=== PATIENT | male | born 1940 | race Hispanic/Latino ===

== ENCOUNTER 2016-11-09 19:59 | Inpatient (IN) | payer BC, MEDICARE ==
[2016-11-09] MEDS ORDERED: Lidocaine/Prilocaine CREAM 5GM TP ONE ×2 (21:13→21:33)
[2016-11-09 21:14] LABS: BASO # 0.1 K/uL (0.0-0.2); BASO % 0.5 % (0.0-2.0); EOS # 0.1 K/uL (0.0-0.7); EOS % 0.5 % (0.0-4.0); HEMATOCRIT 38.2 % (35.0-51.0); LYMPH # 1.4 K/uL (1.0-4.3); LYMPH % 11.6 % (20.0-40.0); MEAN CELL VOLUME 98.4 fl (80.0-94.0); MEAN CORPUSCULAR HEMOGLOBIN 32.7 pg (27.0-31.0); MEAN CORPUSCULAR HGB CONC 33.3 g/dL (33.0-37.0); MONO # 1.4 K/uL (0.0-0.8); MONO % 12.1 % (0.0-10.0); NEUT # 8.9 K/uL (1.8-7.0); NEUT % 75.3 % (50.0-75.0); NRBC % 0.1 % (0.0-0.0); WHITE BLOOD COUNT 11.9 K/uL (4.8-10.8)
[2016-11-09 21:29] LABS: ALB/GLOB RATIO 1.3 (1.0-2.1); BILIRUBIN,TOTAL 0.7 mg/dl (0.2-1.3); CALCIUM 10.1 mg/dL (8.4-10.2); POTASSIUM 4.6 MMOL/L (3.6-5.0); TOTAL PROTEIN 7.9 G/DL (6.3-8.2)
[2016-11-09 21:30] LABS: RBC URINE < 1 /hpf (0-3); URINE BILIRUBIN NEGATIVE (NEGATIVE); URINE BLOOD NEGATIVE (NEGATIVE); URINE COLOR YELLOW (YELLOW); URINE GLUCOSE (UA) 50 mg/dL (Normal); URINE KETONE NEGATIVE (NEGATIVE); URINE LEUKOCYTE ESTERASE NEG Leu/uL (Negative); URINE PROTEIN 30 mg/dL (NEGATIVE); URINE UROBILINOGEN 0.2-1.0 mg/dL (0.2-1.0); WBC URINE 1 /hpf (0-5)
[2016-11-09 21:32] LABS: ABG ALLEN TEST YES; ARTERIAL BLOOD GAS HCO3 22.7 mmol/L (21-28); ARTERIAL BLOOD GAS PH 7.38 (7.35-7.45); ARTERIAL BLOOD GAS PO2 81 mm/Hg (80-100)
[2016-11-09 21:42] LABS: TROPONIN I 0.013 ng/mL (0.00-0.120)
--- NOTE | 2016-11-09 22:07 | ED PDOC ---
Hyperglycemia/Hypoglycemia Time Seen by Provider: 11/09/16 20:09 Chief Complaint (Nursing): Cough, Cold, Congestion Chief Complaint (Provider): Hypoglycemia, weakness, slurred speech History Per: Patient History/Exam Limitations: no limitations Onset/Duration Of Symptoms: Mins Current Symptoms Are (Timing): Still Present Severity: Moderate Current Diabetic Medications: Insulin, Oral Medication Causative (Exacerbating) Factor(s): Ate Less Than Normal Associated Infectious Symptoms: denies: Nausea, Vomiting, Diarrhea : The patient does not have any of the infectious symptoms listed except for those marked. Treatment Prior To Provider Evaluation: Accucheck, Oral Fluids/Paste Given ( orange juice given) Response To Treatment: Good Response Additional History Per: Patient, Family Additional Complaint(s): The pt is a 76yo male with PMHx of HTN, DM, CAD, CABG, presents to the ED for evaluation of Hypoglycemia. Pt was admitted last week for 3 days at [facility] for chest pain. Per family, the pt had a cardiac cath done which was found to be normal. Pt was discharged 2 days ago and reports his blood sugar has been labile. Pt's pMD Dr. Esteban has been changing his oral hypoglycemic and insulin regimen. Pt's reports he became diaphoretic today and presented with slurred speech. She reports calling 911 and EMS responded, and accucheck on field showed blood sugar level of 58. Pt was given orange juice with improvements. On arrival to triage, pt had accucheck of 64. Pt reports he has had similar episodes in the past. Denies any associated chest pain, cough, fever, nausea, vomiting and diarrhea. Family additionally reports pt has poor food intake today due to lack of appetite. Of note, pt was hypothermic upon arrival and in room, Hall hugger blanket was placed. Currently , pt offers no additional medical complaints. Past Medical History Reviewed: Historical Data, Nursing Documentation, Vital Signs Vital Signs: Last Vital Signs Temp 97.5 F L 11/09/16 21:50 Pulse 73 11/09/16 21:50 Resp 20 11/09/16 21:50 BP 130/60 11/09/16 20:20 Pulse Ox 100 11/09/16 21:50 - Medical History PMH: CAD, HTN, Hypercholesterolemia - Surgical History Surgical History: CABG - Family History Family History: States: Hypertension - Immunization History Hx Tetanus Toxoid Vaccination: No Hx Influenza Vaccination: No Hx Pneumococcal Vaccination: Yes - Home Medications Home Medications: Ambulatory Orders Medication Instructions Recorded oxyCODONE/Acetaminophen [Percocet 1 tab PO Q6H PRN #15 tab 12/11/14 5/325 mg Tab] - Allergies Allergies/Adverse Reactions: Allergies Allergy/AdvReac Type Severity Reaction Status Date / Time No Known Allergies Allergy Verified 12/11/14 18:07 Review of Systems ROS Statement: Except As Marked, All Systems Reviewed And Found Negative Constitutional: Positive for: Other (Diaphoretic). Negative for: Fever Gastrointestinal: Negative for: Nausea, Vomiting, Diarrhea Neurological: Positive for: Weakness, Other (Slurred speech) Physical Exam - Reviewed Nursing Documentation Reviewed: Yes Vital Signs Reviewed: Yes - Physical Exam Appears: Positive for: Well, Non-toxic, Uncomfortable Head Exam: Positive for: ATRAUMATIC, NORMAL INSPECTION, NORMOCEPHALIC Skin: Positive for: Diaphoresis Eye Exam: Positive for: Normal appearance Neck: Positive for: Normal Cardiovascular/Chest: Positive for: Regular Rate, Rhythm Respiratory: Positive for: Normal Breath Sounds. Negative for: Respiratory Distress Neurologic/Psych: Positive for: Alert, Oriented, Mood/Affect (slurred speech), Other (weakness) - Laboratory Results Result Diagrams: 11/10/16 07:30 11/09/16 21:00 - ECG O2 Sat by Pulse Oximetry: 100 (RA) Pulse Ox Interpretation: Normal - Critical Care Total Time (In Min): 30 Documented Critical Care: Time excludes all time spent performint seperately billable procedures Medical Decision Making Medical Decision Making: Time: 2039 Impression: 76yo male s/p hypoglycemic episode in setting of known DM. Metabolic hypothermia Plan: * Labs * EKG * Serial Accucheck * Hall Hugger [place] * Reassess Time: 2099 Labs reviewed with no significant abnormalities. Elevated BUN and creatinine levels. Pt has remained euglycemic in ED. Hall hugger blanket placed due to hypothermia with subsequent euthermia. Pt placed on observation status and case discussed with Dr. Keys, resident operations chief who is admitting for Dr. Parmar. Scribe Attestation: Documented by Holly Albrecht acting as a scribe for James Adams MD. Provider Attestation: All medical record entries made by the Scribe were at my direction and personally dictated by me. I have reviewed the chart and agree that the record accurately reflects my personal performance of the history, physical exam, medical decision making, and the department course for this patient. I have also personally directed, reviewed, and agree with the discharge instructions and disposition. Disposition - Clinical Impression Clinical Impression: Hypoglycemia, Hypothermia - Patient ED Disposition Is Patient to be Admitted: Yes Discussed With : Kenneth Keys - Disposition Disposition Time: 22:03 Condition: FAIR
--- NOTE | 2016-11-09 22:20 | RAD ---
HISTORY: admit COMPARISON: Chest x-ray performed 12/11/14 TECHNIQUE: Chest, one view. FINDINGS: LUNGS: Right basilar atelectasis or infiltrate. Please note that chest x-ray has limited sensitivity for the detection of pulmonary masses. PLEURA: No significant pleural effusion identified. No definite pneumothorax . CARDIOVASCULAR: Median sternotomy wires, several of which appear discontinuous. Cardiomegaly. Ectatic aorta containing atherosclerotic calcifications. OSSEOUS STRUCTURES: Degenerative changes of spine and shoulders. Chronic appearing right rib fracture deformities. Correlate clinically. VISUALIZED UPPER ABDOMEN: Elevation/eventration of the right hemidiaphragm. OTHER FINDINGS: None. IMPRESSION: Right basilar atelectasis or infiltrate. Chronic appearing right rib fracture deformities. Correlate clinically. Additional findings as above.
[2016-11-09 22:30] LABS: PARTIAL THROMBOPLASTIN TIME 27.9 SECONDS (23.3-32.5)
[2016-11-09] MEDS ORDERED: Glucagon Recombinant 1 mg Inj IM PRN (23:25)
[2016-11-09] MEDS ORDERED: Dextrose 50% SYRINGE Inj (50 ml) IV PRN (23:25)
--- NOTE | 2016-11-09 23:33 | CP.PCM.HP ---
<Kenneth Keys - Last Filed: 11/10/16 09:03> History of Present Illness - History of Present Illness History of Present Illness: CC/HPI: 76 y.o. male with history of HTN, DM, coronary heart disease s/p CABG ( Cardiac Cath on Friday at [facility] -Negative and discharged with no further intervention) presents to [facility] via ambulance after his noted patient suddenly became diaphoretic, slurring his speech, and complaining of generalized weakness. EMS arrived at the scene and found patient's accuchek to be 58. Prior to arrival Pt. was given [place] juice with peanut butter and crackers. Accucheck in the E.D. was recorded to be 64. Pt. reports that he has been talking Novolog 40 units with each meal. Pt. does report of only having soup for lunch with the 40 units of Novolog. Pt. reports had stopped taking Metformin because he was told by "one" of his doctors that his kidney are not working right. ROS: On ROS, pt. denies any headache, chest pain, shortness of breath, weakness , nausea, vomiting, fever, chills, dirrhea, trauma, falls, injury, or dysuria. 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 Penaloza Pharmacy: [facility] E.D. Course * Labs * EKG * Serial Accucheck * Isabel Crespo [place] Present on Admission - Present on Admission Any Indicators Present on Admission: Yes History of DVT/PE: No History of Uncontrolled Diabetes: Yes Urinary Catheter: No Decubitus Ulcer Present: No Review of Systems - Review of Systems Review of Systems: See HPI Past Patient History - Past Social History Smoking Status: Never Smoked - CARDIAC Hx Hypercholesterolemia: Yes Hx Hypertension: Yes - NEUROLOGICAL Other/Comment: left leg neuropathy - ENDOCRINE/METABOLIC Hx Diabetes Mellitus Type 2: Yes - PSYCHIATRIC Hx Substance Use: No - SURGICAL HISTORY Hx Coronary Artery Bypass Graft: Yes Meds Allergies/Adverse Reactions: Allergies Allergy/AdvReac Type Severity Reaction Status Date / Time No Known Allergies Allergy Verified 12/11/14 18:07 Physical Exam - Constitutional Appears: Non-toxic, No Acute Distress Additional comments: +Obese - Eye Exam Eye Exam: EOMI, Normal appearance, PERRL - ENT Exam ENT Exam: Mucous Membranes Moist - Neck Exam Neck exam: Positive for: Full Rom - Respiratory Exam Respiratory Exam: NORMAL BREATHING PATTERN Additional comments: Scattered bi-basilar rhonchi appreciated - Cardiovascular Exam Cardiovascular Exam: REGULAR RHYTHM. absent: JVD - GI/Abdominal Exam GI & Abdominal Exam: Soft. absent: Tenderness - Extremities Exam Extremities exam: Positive for: normal capillary refill, pedal edema (+2 below the level of the knees bilat). Negative for: calf tenderness Additional comments: Strength +5/5 upper extremities Strength +5/5 lower extremities - Neurological Exam Neurological exam: Alert, CN II-XII Intact, Oriented x3 - Skin Skin Exam: Dry, Normal Color, Warm Results - Vital Signs Recent Vital Signs: Last Vital Signs Temp 97.5 F L 11/09/16 21:50 Pulse 73 11/09/16 21:50 Resp 20 11/09/16 21:50 BP 130/60 11/09/16 20:20 Pulse Ox 100 11/09/16 22:07 - Labs Result Diagrams: 11/09/16 21:00 11/09/16 21:00 Assessment & Plan - Assessment and Plan (Free Text) Assessment: 76 y.o. male with HTN, DM, CAD, and a recent cardiac cath at [facility] which was normal as per pt. and family admitted for hypoglycemia and hypothermia Hypoglycemia due to Diabetes Medications- 67 on admission to E.R. Pt. and family unsure as to the exact regimen of medications PMD has prescribed 1- Hold Home Medications for Diabetes 2- Accuchecks Q4 3- Low dose sliding scale insulin for now 4- Diabetic Diet 5- Will consider starting patient on basal insulin and short acting insulin with meals in the a.m. Hypothermia- 92.8 on admission 1- TOM hugger applied 2- Continue to monitor temperature 3- Temperature is 98.2 currently SIRS Criteria - Temperature of 92.8 and WBC of 11.9 1- Blood cultures ordered 2- UA only significant for proteinuria & glucosuria 3- CXR inconclusive showing RT. basilar atelectasis or infiltrates 4- Will consider starting antibiotics in the a.m. if pt. remains hypo or hyperthermic or elevation in WBC 5- BCx pending 6- Procalcitonin level pending 7- Repeat CBC from this morning Chronic renal insuffeciency 1- Most likely due to uncontrolled Type II DM 2- Control underlying Diabetes HTN 1- continue home medication Ramipril 20mg po daily Hyperlipidemia 1- continue Lipitor 20 mg po daily (At home on Zocor) DVT prophylaxis 1- Lovenox 40 mg sc <Matilda Hardin - Last Filed: 11/10/16 09:11> Results - Vital Signs Recent Vital Signs: Last Vital Signs Temp 99 F 11/10/16 07:53 Pulse 76 11/10/16 07:53 Resp 18 11/10/16 07:53 BP 152/77 H 11/10/16 07:53 Pulse Ox 93 L 11/10/16 07:53 - Labs Result Diagrams: 11/09/16 21:00 11/09/16 21:00 Assessment & Plan - Assessment and Plan (Free Text) Assessment: ATTENDING NOTE ATTESTATION PATIENT SEEN AND EXAMINED. CASE DISCUSSED WITH RESIDENT. AGREE WITH PLAN.
[2016-11-10] MEDS: Insulin Regular 100 units/ml SC SCH ×6 (01:50→22:25)
[2016-11-10 08:57] LABS: HEMATOCRIT 33.8 % (35.0-51.0); MEAN CELL VOLUME 98.9 fl (80.0-94.0); MEAN CORPUSCULAR HEMOGLOBIN 33.1 pg (27.0-31.0); MEAN CORPUSCULAR HGB CONC 33.5 g/dL (33.0-37.0); RED CELL DISTRIBUTION WIDTH 12.5 % (11.5-14.5); WHITE BLOOD COUNT 12.5 K/uL (4.8-10.8)
[2016-11-10] MEDS: Enoxaparin 40 mg Syringe SC SCH (09:13)
[2016-11-10] MEDS: Sodium Chloride 0.9% 1,000 ML IV SCH (11:10)
--- NOTE | 2016-11-10 11:49 | CP.PCM.PN ---
<Vivek Alves - Last Filed: 11/10/16 11:53> Subjective - Date & Time of Evaluation Date of Evaluation: 11/10/16 Time of Evaluation: 09:00 - Subjective Subjective: 76 y/o M admitted for hypoglicemia seen at bedside comfortable in bed, not acute distress. Denies dizziness, CP, SOB, palpitations, diaphoresis, vision changes or weakness. Patient is tolerating PO. Patient states he was using insulin at home as prescribed. Objective - Vital Signs/Intake and Output Vital Signs (last 24 hours): Temp Pulse Resp BP Pulse Ox 99 F 76 18 152/77 H 93 L 11/10/16 07:53 11/10/16 07:53 11/10/16 07:53 11/10/16 09:12 11/10/16 07:53 - Medications Medications: Current Medications Atorvastatin Calcium (Lipitor) 20 mg PO DAILY [facility] Last Admin: 11/10/16 11:09 Dose: 20 mg Dextrose (Dextrose 50% Inj) 0 ml IV STAT PRN; Protocol PRN Reason: Hyglycemia Protocol Dextrose (Glutose 15) 0 gm PO ONCE PRN; Protocol PRN Reason: Hypoglycemia Protocol Enoxaparin Sodium (Lovenox) 40 mg SC DAILY [facility] PRN Reason: Protocol Last Admin: 11/10/16 09:13 Dose: 40 mg Glucagon (Glucagen Diagnostic Kit) 0 mg IM STAT PRN; Protocol PRN Reason: Hypoglycemia Protocol Sodium Chloride (Sodium Chloride 0.9%) 1,000 mls @ 125 mls/hr IV .Q8H [facility] Stop: 11/11/16 10:01 Last Admin: 11/10/16 11:10 Dose: 125 mls/hr Insulin Human Regular (Humulin R) 0 units SC ACHS [facility] PRN Reason: Protocol Ramipril (Altace) 20 mg PO DAILY [facility] Last Admin: 11/10/16 09:12 Dose: 20 mg - Labs Labs: PT 10.9 SECONDS (9.6-11.2) 11/09/16 21:00 INR 1.05 (0.92-1.08) 11/09/16 21:00 APTT 27.9 SECONDS (23.3-32.5) 11/09/16 21:00 - Constitutional Appears: Non-toxic, No Acute Distress - Eye Exam Eye Exam: PERRL - ENT Exam ENT Exam: Mucous Membranes Moist - Respiratory Exam Respiratory Exam: Clear to Ausculation Bilateral, NORMAL BREATHING PATTERN. absent: Rales - Cardiovascular Exam Cardiovascular Exam: REGULAR RHYTHM, +S1, +S2. absent: Gallop - GI/Abdominal Exam GI & Abdominal Exam: Soft, Normal Bowel Sounds. absent: Tenderness - Extremities Exam Extremities Exam: Normal Capillary Refill, Pedal Edema (B/L pitting pedal edema. ) - Neurological Exam Neurological Exam: Alert, Awake, Oriented x3 - Psychiatric Exam Psychiatric exam: Normal Affect, Normal Mood - Skin Skin Exam: Normal Color, Warm Assessment and Plan - Assessment and Plan (Free Text) Assessment: 76 y.o. male with HTN, DM, CAD, and a recent cardiac cath at [facility] which was normal as per pt. and family admitted for hypoglycemia and hypothermia Hypoglycemia on DM Hold Home Medications for Diabetes Accuchecks ACHS medium dose SSI Diabetic Diet Will consider endocrinology consult tomorrow for DM management Hypothermia 92.8 on admission Resolved SIRS on admission Hypothermia resolved. Does not meet criteria for SIRS at this time WBC still elevated 12.5 Blood cultures ordered UA only significant for proteinuria & glucosuria CXR inconclusive showing RT. basilar atelectasis or infiltrates Procalcitonin level pending Chronic renal insufficiency Most likely due to uncontrolled Type II DM Control underlying Diabetes HTN continue home medication Ramipril 20mg po daily Hx of Hyperlipidemia continue Lipitor 20 mg po daily (At home on Zocor) DVT prophylaxis Lovenox 40 mg sc <Matilda Hardin - Last Filed: 11/11/16 10:59> Subjective - Subjective Subjective: ATTENDING NOTE/ATTESTATION PATIENT SEEN AND EXAMINED. CASE DISCUSSED WITH RESIDENT. AGREE WITH PLAN. Objective - Vital Signs/Intake and Output Vital Signs (last 24 hours): Temp Pulse Resp BP Pulse Ox 98.5 F 78 18 180/91 H 95 11/11/16 09:00 11/11/16 09:00 11/11/16 09:00 11/11/16 09:44 11/11/16 09:00 Intake and Output: 11/11/16 11/11/16 06:59 18:59 Intake Total 1100 Balance 1100 - Medications Medications: Current Medications Atorvastatin Calcium (Lipitor) 20 mg PO DAILY [facility] Last Admin: 11/11/16 09:43 Dose: 20 mg Dextrose (Dextrose 50% Inj) 0 ml IV STAT PRN; Protocol PRN Reason: Hyglycemia Protocol Dextrose (Glutose 15) 0 gm PO ONCE PRN; Protocol PRN Reason: Hypoglycemia Protocol Enoxaparin Sodium (Lovenox) 40 mg SC DAILY [facility] PRN Reason: Protocol Last Admin: 11/11/16 09:43 Dose: 40 mg Glucagon (Glucagen Diagnostic Kit) 0 mg IM STAT PRN; Protocol PRN Reason: Hypoglycemia Protocol Insulin Human Regular (Humulin R) 0 units SC ACHS [facility] PRN Reason: Protocol Last Admin: 11/11/16 06:59 Dose: 4 u Ramipril (Altace) 20 mg PO DAILY [facility] Last Admin: 11/11/16 09:44 Dose: 20 mg - Labs Labs: 11/11/16 05:20 11/11/16 05:20 PT 10.9 SECONDS (9.6-11.2) 11/09/16 21:00 INR 1.05 (0.92-1.08) 11/09/16 21:00 APTT 27.9 SECONDS (23.3-32.5) 11/09/16 21:00
[2016-11-10] MEDS ORDERED: Insulin Regular 100 units/ml SC ONE (14:30)
[2016-11-11] MEDS: Sodium Chloride 0.9% 1,000 ML IV SCH ×2 (00:17→02:15)
[2016-11-11 05:14] VITALS: RESP 18
[2016-11-11 06:31] LABS: HEMATOCRIT 35.7 % (35.0-51.0); MEAN CELL VOLUME 97.5 fl (80.0-94.0); MEAN CORPUSCULAR HEMOGLOBIN 32.9 pg (27.0-31.0); MEAN CORPUSCULAR HGB CONC 33.8 g/dL (33.0-37.0); RED CELL DISTRIBUTION WIDTH 12.6 % (11.5-14.5); WHITE BLOOD COUNT 9.5 K/uL (4.8-10.8)
[2016-11-11 06:37] LABS: ALB/GLOB RATIO 1.4 (1.0-2.1); ALKALINE PHOSPHATASE 53 U/L (38-126); ALT/SGPT 39 U/L (21-72); AST/SGOT 34 U/L (17-59); BILIRUBIN,TOTAL 0.8 mg/dl (0.2-1.3); BLOOD UREA NITROGEN 32 mg/dl (9-20); CALCIUM 9.5 mg/dL (8.4-10.2); CARBON DIOXIDE 24 mmol/L (22-30); CHLORIDE 104 mmol/L (98-107); GFR AFRICAN-AMERICAN > 60; GLUCOSE,RANDOM 249 mg/dL (75-110); POTASSIUM 4.7 MMOL/L (3.6-5.0); SODIUM 139 mmol/l (132-148); TOTAL PROTEIN 7.3 G/DL (6.3-8.2)
[2016-11-11] MEDS: Insulin Regular 100 units/ml SC SCH ×2 (06:59→11:54)
[2016-11-11] MEDS: Enoxaparin 40 mg Syringe SC SCH (09:43)
--- NOTE | 2016-11-11 10:35 | CP.PCM.DIS ---
<Arti Jones - Last Filed: 11/11/16 17:21> Provider - Provider Date of Admission: 11/10/16 10:10 Attending physician: Yousuf Esteban MD Time Spent in preparation of Discharge (in minutes): 30 Diagnosis - Discharge Diagnosis (1) Uncontrolled diabetes mellitus Status: Acute Priority: High Comment: Decreased Novolog insulin dose for now. F/U with supply person/ diabetic specialist at [facility] on November and f/u recommendations. C/W Home care nurse. (2) Hypertension Status: Chronic Priority: Medium Comment: Asymptomatic. F/U with PMD, Dr. parmar as outpatient in 1 week or as needed. (3) CAD (coronary artery disease) Status: Chronic Priority: Medium Comment: Asymptomatic. F/U as outpatient with PMD. Hospital Course - Lab Results Lab Results: Most Recent Lab Values WBC 9.5 K/uL (4.8-10.8) 11/11/16 05:20 RBC 3.66 Mil/uL (4.40-5.90) L 11/11/16 05:20 Hgb 12.1 g/dL (12.0-18.0) 11/11/16 05:20 Hct 35.7 % (35.0-51.0) 11/11/16 05:20 MCV 97.5 fl (80.0-94.0) H 11/11/16 05:20 MCH 32.9 pg (27.0-31.0) H 11/11/16 05:20 MCHC 33.8 g/dL (33.0-37.0) 11/11/16 05:20 RDW 12.6 % (11.5-14.5) 11/11/16 05:20 Plt Count 214 K/uL (130-400) 11/11/16 05:20 MPV 10.0 fl (7.2-11.7) 11/09/16 21:00 Neut % (Auto) 75.3 % (50.0-75.0) H 11/09/16 21:00 Lymph % (Auto) 11.6 % (20.0-40.0) L 11/09/16 21:00 [place] % (Auto) 12.1 % (0.0-10.0) H 11/09/16 21:00 Eos % (Auto) 0.5 % (0.0-4.0) 11/09/16 21:00 Baso % (Auto) 0.5 % (0.0-2.0) 11/09/16 21:00 Neut # 8.9 K/uL (1.8-7.0) H 11/09/16 21:00 Lymph # 1.4 K/uL (1.0-4.3) 11/09/16 21:00 [place] # 1.4 K/uL (0.0-0.8) H 11/09/16 21:00 Eos # 0.1 K/uL (0.0-0.7) 11/09/16 21:00 Baso # 0.1 K/uL (0.0-0.2) 11/09/16 21:00 PT 10.9 SECONDS (9.6-11.2) 11/09/16 21:00 INR 1.05 (0.92-1.08) 11/09/16 21:00 APTT 27.9 SECONDS (23.3-32.5) 11/09/16 21:00 pCO2 37 mm/Hg (35-45) 11/09/16 21:28 pO2 81 mm/Hg (80-100) 11/09/16 21: HCO3 22.7 mmol/L (21-28) 11/09/16 21:28 ABG pH 7.38 (7.35-7.45) 11/09/16 21: ABG Total CO2 23.0 mmol/L (22-28) 11/09/16 21:28 ABG O2 Saturation 98.9 % (95-98) H 11/09/16 21:28 ABG Base Excess -2.8 mmol/L (-2.0-3.0) L 11/09/16 21: Enmanuel Test Yes 11/09/16: ABG Potassium 4.7 mmol/L (3.6-5.2) 11/09/16 21: A-a O2 Difference 22.0 mm/Hg 11/09/16 21: Sodium 134.0 mmol/L (132-148) 11/09/16 21: Chloride 106.0 mmol/L (98-107) 11/09/16 21:28 Glucose 175 mg/dL (75-110) H 11/09/16 21:28 Lactate 1.1 mmol/L (0.7-2.1) 11/09/16 21:28 FiO2 21.0 % 11/09/16 21:28 Sodium 139 mmol/l (132-148) 11/11/16 05:20 Potassium 4.7 MMOL/L (3.6-5.0) 11/11/16 05:20 Chloride 104 mmol/L (98-107) 11/11/16 05:20 Carbon Dioxide 24 mmol/L (22-30) 11/11/16 05:20 Anion Gap 16 (10-20) 11/11/16 05:20 BUN 32 mg/dl (9-20) H 11/11/16 05:20 Creatinine 1.2 mg/dL (0.8-1.5) 11/11/16 05:20 Est GFR ( Amer) > 60 11/11/16 05:20 Est GFR (Non-Af Amer) 59 11/11/16 05:20 Random Glucose 249 mg/dL (75-110) H 11/11/16 05:20 Calcium 9.5 mg/dL (8.4-10.2) 11/11/16 05:20 Total Bilirubin 0.8 mg/dl (0.2-1.3) 11/11/16 05:20 AST 34 U/L (17-59) 11/11/16 05:20 ALT 39 U/L (21-72) 11/11/16 05:20 Alkaline Phosphatase 53 U/L (38-126) 11/11/16 05:20 Troponin I 0.0130 ng/mL (0.00-0.120) 11/09/16 21:00 Total Protein 7.3 G/DL (6.3-8.2) 11/11/16 05:20 Albumin 4.2 g/dL (3.5-5.0) 11/11/16 05:20 Globulin 3.1 gm/dL (2.2-3.9) 11/11/16 05:20 Albumin/Globulin Ratio 1.4 (1.0-2.1) 11/11/16 05:20 Procalcitonin 0.06 NG/ML (0.19-0.49) L 11/10/16 01:16 Arterial Blood Potassium 4.7 mmol/L (3.6-5.2) 11/09/16 21:28 Urine Color Yellow (YELLOW) 11/09/16 21:05 Urine Clarity Clear (Clear) 11/09/16 21:05 Urine pH 5.0 (5.0-8.0) 11/09/16 21:05 Ur Specific [place] 1.018 (1.003-1.030) 11/09/16 21:05 Urine Protein 30 mg/dL (NEGATIVE) 11/09/16 21:05 Urine Glucose (UA) 50 mg/dL (Normal) 11/09/16 21:05 Urine Ketones Negative mg/dL (NEGATIVE) 11/09/16 21:05 Urine Blood Negative (NEGATIVE) 11/09/16 21: Urine Nitrate Negative (NEGATIVE) 11/09/16 21:05 Urine Bilirubin Negative (NEGATIVE) 11/09/16 21:05 Urine Urobilinogen 0.2-1.0 mg/dL (0.2-1.0) 11/09/16 21:05 Ur Leukocyte Esterase Neg Carrington/uL (Negative) 11/09/16 21:05 Urine RBC (Auto) < 1 /hpf (0-3) 11/09/16 21:05 Urine Microscopic WBC 1 /hpf (0-5) 11/09/16 21:05 Ur Squamous Epith Cells < 1 /hpf (0-5) 11/09/16 21:05 Hyaline Casts 0-2 /hpf (0-2) 11/09/16 21:05 - Hospital Course Hospital Course: 76 y.o. male with history of HTN, DM, coronary heart disease s/p CABG (Cardiac Cath on Friday at [facility] -Negative and discharged with no further intervention) presented to [facility] via ambulance after his noted he was having a hypoglycemic event.At ED patient was found to be hypothermic and with mild leukocytosis and was admitted for acute changes in mental status with slurring speech and generalized weakness. During admission patient was afebrile , leukocytosis resolved without antibiotics, and patient was tolerating PO. Novolog insulin dose was decreased from 40 units to 20 units, and patient/ family were instructed on Insulin/diabetic management at home, continue with Home care nurse, and f/u with Electrical Timing Device Calibrator/community service specialist at [facility]. Patient reports that he was recent evaluated for a home health nurse for insulin/diabetic management due to macular degeneration. - Date & Time of H&P Date of H&P: 11/09/16 Time of H&P: 23:35 Discharge Exam - Head Exam Head Exam: ATRAUMATIC, NORMAL INSPECTION, NORMOCEPHALIC - Additional Findings Additional findings: Constitutional Appears: Non-toxic, No Acute Distress - Eye Exam Eye Exam: PERRL - ENT Exam ENT Exam: Mucous Membranes Moist - Respiratory Exam Respiratory Exam: Clear to Ausculation Bilateral, NORMAL BREATHING PATTERN. absent: Rales - Cardiovascular Exam Cardiovascular Exam: REGULAR RHYTHM, +S1, +S2. absent: Gallop - GI/Abdominal Exam GI & Abdominal Exam: Soft, Normal Bowel Sounds. absent: Tenderness - Extremities Exam Extremities Exam: Normal Capillary Refill, Pedal Edema (B/L pitting pedal edema. ) - Neurological Exam Neurological Exam: Alert, Awake, Oriented x3 - Psychiatric Exam Psychiatric exam: Normal Affect, Normal Mood - Skin Skin Exam: Normal Color, Warm Discharge Plan - Discharge Medications Prescriptions: Aspirin 81 mg PO DAILY #1 tab.chew Insulin Aspart [Novolog] 20 unit SC AC #1 ml Ramipril [Altace] 20 mg PO DAILY #30 capsule Simvastatin 20 mg PO DAILY #30 tablet - Follow Up Plan Condition: GOOD Disposition: HOME/ ROUTINE Instructions: Diabetic Hypoglycemia (DC), Acute Hypothermia (DC) Additional Instructions: -F/U with Diabetic doctor/supply person at [facility] to continue diabetic management. -Decreased Novolog insulin from 40 units to 20 units, and perform accu-check three times a day before insulin administration. -F/U with Dr. Parmar in 1 week or as needed. -Continue with Home care nursing for Diabetic management -ER precautions given. Discontinued Metformin per patient's Electrical Timing Device Calibrator, we recommend f/u supply person recommendation Referrals: Enrique Parmar MD [Staff Provider] - <Enrique Parmar - Last Filed: 11/12/16 06:48> Provider - Provider Date of Admission: 11/10/16 10:10 Attending physician: Yousuf Esteban MD Hospital Course - Lab Results Lab Results: Most Recent Lab Values WBC 9.5 K/uL (4.8-10.8) 11/11/16 05:20 RBC 3.66 Mil/uL (4.40-5.90) L 11/11/16 05:20 Hgb 12.1 g/dL (12.0-18.0) 11/11/16 05:20 Hct 35.7 % (35.0-51.0) 11/11/16 05:20 MCV 97.5 fl (80.0-94.0) H 11/11/16 05:20 MCH 32.9 pg (27.0-31.0) H 11/11/16 05:20 MCHC 33.8 g/dL (33.0-37.0) 11/11/16 05:20 RDW 12.6 % (11.5-14.5) 11/11/16 05:20 Plt Count 214 K/uL (130-400) 11/11/16 05:20 MPV 10.0 fl (7.2-11.7) 11/09/16 21:00 Neut % (Auto) 75.3 % (50.0-75.0) H 11/09/16 21:00 Lymph % (Auto) 11.6 % (20.0-40.0) L 11/09/16 21:00 [place] % (Auto) 12.1 % (0.0-10.0) H 11/09/16 21:00 Eos % (Auto) 0.5 % (0.0-4.0) 11/09/16 21:00 Baso % (Auto) 0.5 % (0.0-2.0) 11/09/16 21:00 Neut # 8.9 K/uL (1.8-7.0) H 11/09/16 21:00 Lymph # 1.4 K/uL (1.0-4.3) 11/09/16 21:00 [place] # 1.4 K/uL (0.0-0.8) H 11/09/16 21:00 Eos # 0.1 K/uL (0.0-0.7) 11/09/16 21:00 Baso # 0.1 K/uL (0.0-0.2) 11/09/16 21:00 PT 10.9 SECONDS (9.6-11.2) 11/09/16 21:00 INR 1.05 (0.92-1.08) 11/09/16 21:00 APTT 27.9 SECONDS (23.3-32.5) 11/09/16 21:00 pCO2 37 mm/Hg (35-45) 11/09/16 21:28 pO2 81 mm/Hg (80-100) 11/09/16 21:28 HCO3 22.7 mmol/L (21-28) 11/09/16 21:28 ABG pH 7.38 (7.35-7.45) 11/09/16 21: ABG Total CO2 23.0 mmol/L (22-28) 11/09/16 21:28 ABG O2 Saturation 98.9 % (95-98) H 11/09/16 21:28 ABG Base Excess -2.8 mmol/L (-2.0-3.0) L 11/09/16 21: Enmanuel Test Yes 11/09/16 21: ABG Potassium 4.7 mmol/L (3.6-5.2) 11/09/16 21: A-a O2 Difference 22.0 mm/Hg 11/09/16 21:28 Sodium 134.0 mmol/L (132-148) 11/09/16 21:28 Chloride 106.0 mmol/L (98-107) 11/09/16 21:28 Glucose 175 mg/dL (75-110) H 11/09/16 21:28 Lactate 1.1 mmol/L (0.7-2.1) 11/09/16 21:28 FiO2 21.0 % 11/09/16 21:28 Sodium 139 mmol/l (132-148) 11/11/16 05:20 Potassium 4.7 MMOL/L (3.6-5.0) 11/11/16 05:20 Chloride 104 mmol/L (98-107) 11/11/16 05:20 Carbon Dioxide 24 mmol/L (22-30) 11/11/16 05:20 Anion Gap 16 (10-20) 11/11/16 05:20 BUN 32 mg/dl (9-20) H 11/11/16 05:20 Creatinine 1.2 mg/dL (0.8-1.5) 11/11/16 05:20 Est GFR ( Amer) > 60 11/11/16 05:20 Est GFR (Non-Af Amer) 59 11/11/16 05:20 POC Glucose (mg/dL) 387 mg/dL (65-110) H 11/11/16 10:54 Random Glucose 249 mg/dL (75-110) H 11/11/16 05:20 Calcium 9.5 mg/dL (8.4-10.2) 11/11/16 05:20 Total Bilirubin 0.8 mg/dl (0.2-1.3) 11/11/16 05:20 AST 34 U/L (17-59) 11/11/16 05:20 ALT 39 U/L (21-72) 11/11/16 05:20 Alkaline Phosphatase 53 U/L (38-126) 11/11/16 05:20 Troponin I 0.0130 ng/mL (0.00-0.120) 11/09/16 21:00 Total Protein 7.3 G/DL (6.3-8.2) 11/11/16 05:20 Albumin 4.2 g/dL (3.5-5.0) 11/11/16 05:20 Globulin 3.1 gm/dL (2.2-3.9) 11/11/16 05:20 Albumin/Globulin Ratio 1.4 (1.0-2.1) 11/11/16 05:20 Procalcitonin 0.06 NG/ML (0.19-0.49) L 11/10/16 01:16 Arterial Blood Potassium 4.7 mmol/L (3.6-5.2) 11/09/16 21:28 Urine Color Yellow (YELLOW) 11/09/16 21:05 Urine Clarity Clear (Clear) 11/09/16 21:05 Urine pH 5.0 (5.0-8.0) 11/09/16 21:05 Ur Specific [place] 1.018 (1.003-1.030) 11/09/16 21:05 Urine Protein 30 mg/dL (NEGATIVE) 11/09/16 21:05 Urine Glucose (UA) 50 mg/dL (Normal) 11/09/16 21:05 Urine Ketones Negative mg/dL (NEGATIVE) 11/09/16 21:05 Urine Blood Negative (NEGATIVE) 11/09/16 21:05 Urine Nitrate Negative (NEGATIVE) 11/09/16 21:05 Urine Bilirubin Negative (NEGATIVE) 05/20/17 21:05 Urine Urobilinogen 0.2-1.0 mg/dL (0.2-1.0) 11/09/16 21:05 Ur Leukocyte Esterase Neg [place]/uL (Negative) 11/09/16 21:05 Urine RBC (Auto) < 1 /hpf (0-3) 11/09/16 21:05 Urine Microscopic WBC 1 /hpf (0-5) 11/09/16 21:05 Ur Squamous Epith Cells < 1 /hpf (0-5) 11/09/16 21:05 Hyaline Casts 0-2 /hpf (0-2) 11/09/16 21:05 Attending/Attestation - Attestation I have personally seen and examined this patient.: Yes I have fully participated in the care of the patient.: Yes I have reviewed all pertinent clinical information, including history, physical exam and plan: Yes
[2016-11-11 12:51] VITALS: BP 165/76; PULSE 100; TEMP 98.6; O2SAT 97
--- NOTE | 2016-11-15 07:17 | CARD ---
APPROVED REPORT EKG Measurement Heart [id number] IA 240P60 [id number] <Conclusion> Sinus rhythm with 1st degree AV block Moderate voltage criteria for LVH, may be normal variant Borderline ECG
== END 2016-11-11 12:50 | disposition home or self-care (01) | DRG 639 ==
LOC: H.ER 19:59 → H.ERHOLD 22:03 → H.TEL 11-10 01:35 → OBSVTOIN 11-10 10:10
PROVIDERS: ADMIT Family Medicine; ATTEND Family Medicine
DX: E11.649 Type 2 diabetes mellitus with hypoglycemia without coma (principal); E11.22 Type 2 diabetes mellitus with diabetic chronic kidney disease; E11.65 Type 2 diabetes mellitus with hyperglycemia; I12.9 Hypertensive chronic kidney disease with stage 1 through stage 4 chronic kidney disease, or unspecified chronic kidney disease; Z95.1 Presence of aortocoronary bypass graft; I25.10 Atherosclerotic heart disease of native coronary artery without angina pectoris; N18.9 Chronic kidney disease, unspecified; E78.5 Hyperlipidemia, unspecified; Z79.4 Long term (current) use of insulin